=== PATIENT | male | born 2000 | race Caucasian/White ===

== ENCOUNTER 2019-08-07 21:37 | Emergency (ER) | payer SELFPAY ==
[~2019-08-07] VITALS: Ht 175.3 cm; Wt 117.9 kg
--- NOTE | 2019-08-07 21:52 | NUR ---
PT TAKEN TO LOBBY. PT PROVIDED URINE SAMPLE.
[2019-08-07 21:53] VITALS: BP 128/75
--- NOTE | 2019-08-07 23:00 | NUR ---
PT TAKEN TO BED 2
--- NOTE | 2019-08-07 23:30 | NUR ---
19 YEAR OLD MALE COMPLAINS OF LEFT TESTICULAR PAIN 10/17 AFTER SOMEONE FELL ONTO HIM WHILE PLAYING BASKETBALL 4 HOURS AGO. PATIENT STATED THAT THE RIGHT TESTICLE WAS RED AND SWOLLEN, STILL SOME SWELLING AND REDNESS PRESENT. PATIENT DENIES BLOOD ON URINE AND DISCHARGE. PATIENT ALERT AND ORIENTED, BREATHING EVEN AND UNLABORED, SKIN WARM AND DRY. BED IN LOWEST POSITION, LOCKED, BED RAIL UPX1. PMH - DENIES MEDICATIONS - NONE ALLERGIES - NKA
--- NOTE | 2019-08-08 01:00 | NUR ---
PATIENT ALERT AND AWAKE, BREATHING EVEN AND UNLABORED
[2019-08-08 01:04] VITALS: BP 120/76
--- NOTE | 2019-08-08 01:04 | NUR ---
Patient discharged with v/s stable. Written and verbal after care instructions ABOUT ORCHITIS given and explained. Patient verbalized understanding. Ambulatory with steady gait. All questions addressed prior to discharge. Advised to follow up with PMD.
== END 2019-08-08 01:04 | disposition home or self-care (01) ==
LOC: MED 21:37
DX: N50.811 Right testicular pain (principal)
CPT/HCPCS: 76870; 99284; Q0092

== ENCOUNTER 2021-01-28 13:13 | Emergency (ER) | payer MEDICAID ==
[~2021-01-28] VITALS: Ht 175.3 cm; Wt 78.5 kg
[2021-01-28 13:21] VITALS: BP 138/88
[2021-01-28 14:09] VITALS: BP 138/88
== END 2021-01-28 14:05 | disposition home or self-care (01) ==
LOC: MED 13:13
DX: K62.5 Hemorrhage of anus and rectum (principal)
CPT/HCPCS: 99281